=== PATIENT | female | born 1930 | race African-American/Black ===

== ENCOUNTER 2018-05-09 15:14 | Inpatient (IN) ==
[2018-05-09] MEDS ORDERED: ENOXAPARIN 100 MG/ML SYRINGE SUBCUT STA (15:34)
[2018-05-09] MEDS ORDERED: ASPIRIN 325 MG TABLET PO STA (15:34)
[2018-05-09] MEDS ORDERED: ALUM/MAG/SIMETH/LIDO VISC 1:1 30 ML BOTTLE PO STA (15:34)
[2018-05-09 16:00] LABS: Basophils % 0.3 % (0.0-0.8); Eosinophils # 0.1 10*3/uL (0.0-0.87); Eosinophils % 0.5 % (0.00-10.9); Hemoglobin 12.1 GM/DL (12.0-16.0); Immature Granulocytes % 0.3 %; Immature Granulocytes Absolute 0.04 #; Lymphocytes # 2.9 10*3/uL (1.4-4.0); Lymphocytes % 21.8 % (21.3-54.2); Mean Corpuscular HGB Conc 32.7 GM/DL (32-36); Mean Corpuscular Hemoglobin 28 PG (27-34); Mean Corpuscular Volume 85.3 FL (87-102); Mean Platelet Volume 12.3 FL (9.6-12.0); Monocytes # 0.4 10*3/uL (0.11-0.8); Monocytes % 3.2 % (1.7-12.7); Neutrophils # 9.8 10*3/uL (1.4-7.4); Neutrophils % 73.9 % (38.7-73.9); Platelet Count 217 T/CUMM (130-400); Red Blood Count 4.34 MC/CUMM (3.8-5.5); Red Cell Distribution Width 13.3 % (9.3-17.3); White Blood Count 13.2 T/CUMM (4-12)
[2018-05-09 17:13] LABS: Albumin 3.4 G/DL (3.4-5.0); Bilirubin,Total 0.4 MG/DL (0.2-1.0); Calcium 9.7 MG/DL (8.5-10.1); Potassium 3.7 MMOL/L (3.5-5.1); Total Protein 7.6 G/DL (6.4-8.3)
[2018-05-09] MEDS ORDERED: ONDANSETRON 4 MG/2 ML VIAL IV PRN (17:32)
[2018-05-09] MEDS ORDERED: PROMETHAZINE 25 MG/1 ML VIAL IM PRN (17:32)
[2018-05-09] MEDS ORDERED: HYDROmorphone 2 MG/1 ML VIAL IV PRN (17:32)
[2018-05-09] MEDS ORDERED: MAGNESIUM SULF RIDER 2 GM in PREMIX 1 EACH IV ONE (17:32)
[2018-05-09] MEDS ORDERED: BISACODYL 5 MG TABLET PO PRN (17:32)
[2018-05-09] MEDS ORDERED: DEXTROSE 50% 25 GM/50 ML VIAL IV PRN (17:45)
[2018-05-09] MEDS ORDERED: GLUCAGON 1 MG VIAL IM PRN (17:45)
[2018-05-09] MEDS ORDERED: SODIUM CHLORIDE 0.9% 1,000 ML IV SCH (18:00)
[2018-05-09 19:04] LABS: Apearance,Urine CLEAR (Clear); Bilirubin,Urine Negative (Negative); Blood, Urine Small mg/dL (Negative); Glucose,Urine (UA) 50 mg/dL (Negative); Ketones,Urine Negative (Negative); Nitrite,Urine Negative (Negative); Protein,Urine Negative; Squamous Epithelial Cell,Urine Occasional /HPF (0-10); Urine Color Straw (Yellow); Urine Specific Gravity 1.003 (1.001-1.035); Urine Urobilinogen < 2.0 EU/DL (0.2-1.0); WBC,Urine <1 /HPF (0-6)
[2018-05-09 20:36] LABS: Folate 14.8 NG/ML (5.4-24.0)
[2018-05-09 21:16] LABS: Risk Ratio 2.86; Thyroid Stimulating Hormone 0.945 uIU/ml (0.358-3.74)
[2018-05-09] MEDS: CIPROFLOXACIN INJ 400 MG in PREMIX 1 EACH IV SCH (21:36)
[2018-05-09] MEDS: INSULIN LISPRO 100 UNIT/ML SUBCUT SCH (21:49)
[2018-05-09] MEDS: SODIUM CHLORIDE 0.45% 1,000 ML IV SCH (21:49)
[2018-05-09] MEDS: metroNIDAZOLE INJ 500 MG in PREMIX 1 EACH IV SCH (21:49)
[2018-05-10] MEDS: metroNIDAZOLE INJ 500 MG in PREMIX 1 EACH IV SCH ×4 (02:36→22:24)
[2018-05-10 05:35] LABS: Basophils % 0.3 % (0.0-0.8); Eosinophils % 0.2 % (0.00-10.9); Hemoglobin 12.4 GM/DL (12.0-16.0); Immature Granulocytes % 0.3 %; Immature Granulocytes Absolute 0.03 #; Lymphocytes # 1.9 10*3/uL (1.4-4.0); Lymphocytes % 18.8 % (21.3-54.2); Mean Corpuscular HGB Conc 34.4 GM/DL (32-36); Mean Corpuscular Hemoglobin 28 PG (27-34); Mean Corpuscular Volume 82.6 FL (87-102); Mean Platelet Volume 12.2 FL (9.6-12.0); Monocytes # 0.4 10*3/uL (0.11-0.8); Monocytes % 3.7 % (1.7-12.7); Neutrophils # 7.9 10*3/uL (1.4-7.4); Neutrophils % 76.7 % (38.7-73.9); Platelet Count 221 T/CUMM (130-400); Red Blood Count 4.36 MC/CUMM (3.8-5.5); Red Cell Distribution Width 13.2 % (9.3-17.3); White Blood Count 10.2 T/CUMM (4-12)
[2018-05-10 05:50] LABS: Albumin 2.9 G/DL (3.4-5.0); Bilirubin,Total 0.9 MG/DL (0.2-1.0); Calcium 9.1 MG/DL (8.5-10.1); Osmolality,Calculated 279.7 MOS/KG (273-304); Potassium 3.6 MMOL/L (3.5-5.1); Total Protein 6.9 G/DL (6.4-8.3)
[2018-05-10] MEDS: INSULIN LISPRO 100 UNIT/ML SUBCUT SCH ×4 (08:05→22:25)
[2018-05-10] MEDS: PANTOPRAZOLE 40 MG TABLET PO SCH (08:06)
[2018-05-10] MEDS: ASPIRIN EC 325 MG TABLET PO SCH (08:06)
[2018-05-10] MEDS: ENOXAPARIN 30 MG/0.3 ML SYRINGE SUBCUT SCH ×2 (08:12→08:13)
[2018-05-10] MEDS ORDERED: LISINOPRIL 20 MG TABLET PO SCH (09:00)
[2018-05-10] MEDS ORDERED: INSULIN GLARGINE 100 UNIT/ML SUBCUT SCH (09:00)
[2018-05-10] MEDS: CIPROFLOXACIN INJ 400 MG in PREMIX 1 EACH IV SCH ×2 (09:56→23:49)
[2018-05-10] MEDS ORDERED: LACTULOSE 20 GM/30 ML UDCUP PO PRN (12:06)
[2018-05-10] MEDS ORDERED: DOCUSATE SODIUM 100 MG CAPSULE PO PRN (12:06)
[2018-05-10] MEDS: SODIUM CHLORIDE 0.45% 1,000 ML IV SCH (17:43)
[2018-05-10] MEDS: LINACLOTIDE 145 MCG CAPSULE PO SCH (22:23)
[2018-05-11] MEDS: SODIUM CHLORIDE 0.45% 1,000 ML IV SCH ×2 (00:16→06:14)
[2018-05-11] MEDS: metroNIDAZOLE INJ 500 MG in PREMIX 1 EACH IV SCH ×4 (02:56→23:02)
[2018-05-11 04:19] LABS: Basophils % 0.3 % (0.0-0.8); Eosinophils % 0.4 % (0.00-10.9); Hematocrit 37.1 VOL% (35.7-47.0); Hemoglobin 12.3 GM/DL (12.0-16.0); Immature Granulocytes % 0.3 %; Immature Granulocytes Absolute 0.03 #; Lymphocytes # 1.8 10*3/uL (1.4-4.0); Lymphocytes % 17.7 % (21.3-54.2); Mean Corpuscular HGB Conc 33.2 GM/DL (32-36); Mean Corpuscular Hemoglobin 28 PG (27-34); Mean Corpuscular Volume 85.3 FL (87-102); Mean Platelet Volume 12.4 FL (9.6-12.0); Monocytes # 0.4 10*3/uL (0.11-0.8); Monocytes % 4.2 % (1.7-12.7); Neutrophils # 7.8 10*3/uL (1.4-7.4); Neutrophils % 77.1 % (38.7-73.9); Platelet Count 209 T/CUMM (130-400); Red Blood Count 4.35 MC/CUMM (3.8-5.5); Red Cell Distribution Width 13.2 % (9.3-17.3); White Blood Count 10.1 T/CUMM (4-12)
[2018-05-11 04:58] LABS: Calcium 8.7 MG/DL (8.5-10.1); Potassium 3.5 MMOL/L (3.5-5.1)
[2018-05-11] MEDS: PANTOPRAZOLE 40 MG TABLET PO SCH (08:38)
[2018-05-11] MEDS: LINACLOTIDE 145 MCG CAPSULE PO SCH (08:38)
[2018-05-11] MEDS: ENOXAPARIN 30 MG/0.3 ML SYRINGE SUBCUT SCH (08:38)
[2018-05-11] MEDS: ASPIRIN EC 325 MG TABLET PO SCH (08:38)
[2018-05-11] MEDS: INSULIN LISPRO 100 UNIT/ML SUBCUT SCH ×4 (08:51→23:02)
[2018-05-11] MEDS ORDERED: ROSUVASTATIN 10 MG TABLET PO SCH (09:30)
[2018-05-11] MEDS: ROSUVASTATIN 20 MG TABLET PO SCH (09:42)
[2018-05-11] MEDS: amLODIPine 5 MG TABLET PO SCH (09:42)
[2018-05-11] MEDS: LISINOPRIL 5 MG TABLET PO SCH (09:43)
[2018-05-11] MEDS: CIPROFLOXACIN INJ 400 MG in PREMIX 1 EACH IV SCH (09:44)
[2018-05-12] MEDS: CIPROFLOXACIN INJ 400 MG in PREMIX 1 EACH IV SCH ×2 (00:14→10:52)
[2018-05-12] MEDS: metroNIDAZOLE INJ 500 MG in PREMIX 1 EACH IV SCH ×2 (03:45→10:52)
[2018-05-12] MEDS ORDERED: LIDOCAINE 100 MG/5 ML SYRINGE ONE (09:00)
[2018-05-12] MEDS ORDERED: PHENYLEPHRINE 1 MG/10 ML SYRINGE IV ONE (09:00)
[2018-05-12] MEDS ORDERED: BENZOCAINE 20% SPRAY 57 GM CAN TOP ONE (09:00)
[2018-05-12] MEDS ORDERED: ONDANSETRON 4 MG/2 ML VIAL ONE (09:00)
[2018-05-12] MEDS ORDERED: PROPOFOL 200 MG/20 ML VIAL IV ONE (09:00)
[2018-05-12] MEDS: INSULIN LISPRO 100 UNIT/ML SUBCUT SCH ×4 (10:27→21:28)
[2018-05-12] MEDS: ASPIRIN EC 325 MG TABLET PO SCH (10:28)
[2018-05-12] MEDS: LINACLOTIDE 145 MCG CAPSULE PO SCH (10:28)
[2018-05-12] MEDS: ROSUVASTATIN 20 MG TABLET PO SCH (10:28)
[2018-05-12] MEDS: amLODIPine 5 MG TABLET PO SCH (10:29)
[2018-05-12] MEDS: LISINOPRIL 5 MG TABLET PO SCH (10:29)
[2018-05-12] MEDS: FLUCONAZOLE 100 MG TABLET PO SCH (10:29)
[2018-05-12] MEDS: PANTOPRAZOLE 40 MG TABLET PO SCH (10:29)
[2018-05-12] MEDS: metFORMIN 850 MG TABLET PO SCH ×2 (12:59→16:47)
[2018-05-13 04:37] LABS: Basophils # 0.1 10*3/uL (0.0-0.2); Basophils % 0.5 % (0.0-0.8); Eosinophils # 0.1 10*3/uL (0.0-0.87); Eosinophils % 0.8 % (0.00-10.9); Hematocrit 31.9 VOL% (35.7-47.0); Hemoglobin 10.6 GM/DL (12.0-16.0); Immature Granulocytes % 0.3 %; Immature Granulocytes Absolute 0.03 #; Lymphocytes # 2.8 10*3/uL (1.4-4.0); Lymphocytes % 26.1 % (21.3-54.2); Mean Corpuscular HGB Conc 33.2 GM/DL (32-36); Mean Corpuscular Hemoglobin 28 PG (27-34); Mean Corpuscular Volume 83.1 FL (87-102); Mean Platelet Volume 12.4 FL (9.6-12.0); Monocytes # 0.6 10*3/uL (0.11-0.8); Monocytes % 6.1 % (1.7-12.7); Neutrophils % 66.2 % (38.7-73.9); Platelet Count 191 T/CUMM (130-400); Red Blood Count 3.84 MC/CUMM (3.8-5.5); Red Cell Distribution Width 13.2 % (9.3-17.3); White Blood Count 10.6 T/CUMM (4-12)
[2018-05-13 04:52] LABS: Calcium 8.1 MG/DL (8.5-10.1); Osmolality,Calculated 279.7 MOS/KG (273-304); Potassium 3.4 MMOL/L (3.5-5.1)
[2018-05-13] MEDS: ASPIRIN EC 325 MG TABLET PO SCH (09:06)
[2018-05-13] MEDS: LISINOPRIL 5 MG TABLET PO SCH (09:06)
[2018-05-13] MEDS: metFORMIN 850 MG TABLET PO SCH ×3 (09:06→18:15)
[2018-05-13] MEDS: ROSUVASTATIN 20 MG TABLET PO SCH (09:06)
[2018-05-13] MEDS: PANTOPRAZOLE 40 MG TABLET PO SCH (09:06)
[2018-05-13] MEDS: FLUCONAZOLE 100 MG TABLET PO SCH (09:06)
[2018-05-13] MEDS: LINACLOTIDE 145 MCG CAPSULE PO SCH (09:07)
[2018-05-13] MEDS: amLODIPine 5 MG TABLET PO SCH (09:07)
[2018-05-13] MEDS: INSULIN LISPRO 100 UNIT/ML SUBCUT SCH ×4 (09:16→21:46)
[2018-05-13 09:44] LABS: Hematocrit 33.6 VOL% (35.7-47.0); Hemoglobin 11.2 GM/DL (12.0-16.0)
[2018-05-13] MEDS: SODIUM CHLOR 0.9% KCL 40 MEQ 40 MEQ/1,000 ML BAG IV SCH (11:43)
[2018-05-14] MEDS: SODIUM CHLOR 0.9% KCL 40 MEQ 40 MEQ/1,000 ML BAG IV SCH ×2 (02:00→05:01)
[2018-05-14 04:16] LABS: Basophils % 0.4 % (0.0-0.8); Eosinophils # 0.2 10*3/uL (0.0-0.87); Eosinophils % 2.8 % (0.00-10.9); Hematocrit 31.1 VOL% (35.7-47.0); Hemoglobin 10.3 GM/DL (12.0-16.0); Immature Granulocytes % 0.2 %; Immature Granulocytes Absolute 0.02 #; Lymphocytes # 3.1 10*3/uL (1.4-4.0); Lymphocytes % 37.3 % (21.3-54.2); Mean Corpuscular HGB Conc 33.1 GM/DL (32-36); Mean Corpuscular Hemoglobin 28 PG (27-34); Mean Corpuscular Volume 83.4 FL (87-102); Mean Platelet Volume 12.5 FL (9.6-12.0); Monocytes # 0.4 10*3/uL (0.11-0.8); Monocytes % 5.3 % (1.7-12.7); Neutrophils # 4.5 10*3/uL (1.4-7.4); Platelet Count 190 T/CUMM (130-400); Red Blood Count 3.73 MC/CUMM (3.8-5.5); Red Cell Distribution Width 13.4 % (9.3-17.3); White Blood Count 8.3 T/CUMM (4-12)
[2018-05-14 04:40] LABS: Calcium 8.1 MG/DL (8.5-10.1); Osmolality,Calculated 279.3 MOS/KG (273-304); Potassium 3.8 MMOL/L (3.5-5.1)
[2018-05-14] MEDS ORDERED: MAGNESIUM CHLORIDE 64 MG TABLET PO ONE (07:08)
[2018-05-14] MEDS ORDERED: POTASSIUM CHLORIDE 20 MEQ TABLET PO SCH (09:00)
[2018-05-14] MEDS: FLUCONAZOLE 100 MG TABLET PO SCH (11:09)
[2018-05-14] MEDS: LISINOPRIL 5 MG TABLET PO SCH (11:11)
[2018-05-14] MEDS: amLODIPine 5 MG TABLET PO SCH (11:11)
[2018-05-14] MEDS: ROSUVASTATIN 20 MG TABLET PO SCH (11:11)
[2018-05-14] MEDS: PANTOPRAZOLE 40 MG TABLET PO SCH (11:11)
[2018-05-14] MEDS: metFORMIN 850 MG TABLET PO SCH ×2 (11:12→15:43)
[2018-05-14] MEDS: ASPIRIN EC 325 MG TABLET PO SCH (11:12)
[2018-05-14] MEDS: LINACLOTIDE 145 MCG CAPSULE PO SCH (11:12)
[2018-05-14] MEDS: INSULIN LISPRO 100 UNIT/ML SUBCUT SCH (15:41)
[2018-05-14 16:05] VITALS: BP 121/59
== END 2018-05-14 16:50 | disposition home health service (06) | DRG 392 ==
LOC: EDBD → EDUNIT# → N.ED 15:14 → N.EDINP 17:32 → SUATTDRO 17:32 → N.TELEN 19:01
PROVIDERS: ADMIT Internal Medicine; ATTEND Hospitalist

== ENCOUNTER 2018-08-03 18:13 | Inpatient (IN) ==
[2018-08-03 19:10] LABS: Basophils % 0.7 % (0.0-0.8); Eosinophils # 0.1 10*3/uL (0.0-0.87); Eosinophils % 1.4 % (0.00-10.9); Hematocrit 39.2 VOL% (35.7-47.0); Hemoglobin 12.6 GM/DL (12.0-16.0); Immature Granulocytes % 0.3 %; Immature Granulocytes Absolute 0.02 #; Lymphocytes % 34.3 % (21.3-54.2); Mean Corpuscular HGB Conc 32.1 GM/DL (32-36); Mean Corpuscular Hemoglobin 28 PG (27-34); Mean Corpuscular Volume 87.5 FL (87-102); Mean Platelet Volume 13.7 FL (9.6-12.0); Monocytes # 0.3 10*3/uL (0.11-0.8); Monocytes % 4.4 % (1.7-12.7); Neutrophils # 3.4 10*3/uL (1.4-7.4); Neutrophils % 58.9 % (38.7-73.9); Platelet Count 157 T/CUMM (130-400); Red Blood Count 4.48 MC/CUMM (3.8-5.5); Red Cell Distribution Width 12.7 % (9.3-17.3); White Blood Count 5.7 T/CUMM (4-12)
[2018-08-03 19:23] LABS: Apearance,Urine CLEAR (Clear); Bacteria,Urine Occasional /HPF (Few); Bilirubin,Urine Negative (Negative); Blood, Urine Negative (Negative); Glucose,Urine (UA) >=500 mg/dL (Negative); Ketones,Urine Negative (Negative); Nitrite,Urine Negative (Negative); Protein,Urine Negative; RBC,Urine <1 /HPF (0-4); Squamous Epithelial Cell,Urine Occasional /HPF (0-10); Urine Color Straw (Yellow); Urine Specific Gravity 1.021 (1.001-1.035); Urine Urobilinogen < 2.0 EU/DL (0.2-1.0); WBC,Urine 1 /HPF (0-6)
[2018-08-03 19:28] LABS: Calcium 9.8 MG/DL (8.5-10.1); Osmolality,Calculated 307.1 MOS/KG (273-304); Potassium 4.5 MMOL/L (3.5-5.1)
[2018-08-03] MEDS ORDERED: ONDANSETRON 4 MG/2 ML VIAL IV STA (19:34)
[2018-08-03] MEDS ORDERED: SODIUM CHLORIDE 0.9% 1,000 ML IV STA (19:34)
[2018-08-03] MEDS ORDERED: INSULIN REGULAR 100 UNIT/ML IV STA (19:34)
[2018-08-03] MEDS ORDERED: PANTOPRAZOLE 40 MG VIAL IV STA (19:34)
[2018-08-03] MEDS ORDERED: ONDANSETRON 4 MG/2 ML VIAL IV PRN (20:22)
[2018-08-03] MEDS ORDERED: SODIUM CHLORIDE 0.9% 1,000 ML IV ONE (20:23)
[2018-08-03] MEDS ORDERED: DEXTROSE 50% 25 GM/50 ML VIAL IV PRN ×2 (20:23)
[2018-08-03] MEDS ORDERED: MAGNESIUM SULF RIDER 4 GM in PREMIX 1 EACH IV PRN (20:23)
[2018-08-03] MEDS ORDERED: SODIUM PHOSPHATE INJ 15.8 MMOL in SODIUM CHLORIDE 0.9% 250 ML IV PRN (20:23)
[2018-08-03] MEDS ORDERED: POTASSIUM CHLORIDE RIDER 10 MEQ in PREMIX 1 EACH IV PRN (20:23)
[2018-08-03] MEDS ORDERED: MAGNESIUM SULF RIDER 2 GM in PREMIX 1 EACH IV PRN (20:23)
[2018-08-03] MEDS ORDERED: INSULIN REGULAR 100 UNIT/ML IV ONE (20:23)
[2018-08-03 21:53] LABS: Calcium 9.4 MG/DL (8.5-10.1); Osmolality,Calculated 305.2 MOS/KG (273-304); Potassium 4.6 MMOL/L (3.5-5.1)
[2018-08-03] MEDS ORDERED: INSULIN REGULAR DRIP 100 ML IV SCH (22:00)
[2018-08-03] MEDS: SODIUM CHLORIDE 0.9% 1,000 ML IV SCH (22:55)
[2018-08-04] MEDS: SODIUM CHLORIDE 0.9% 1,000 ML IV SCH (01:00)
[2018-08-04 01:17] LABS: Calcium 9.3 MG/DL (8.5-10.1); Osmolality,Calculated 295.8 MOS/KG (273-304); Potassium 3.8 MMOL/L (3.5-5.1)
[2018-08-04] MEDS ORDERED: SODIUM CHLORIDE 0.9% 1,000 ML IV SCH (01:23)
[2018-08-04] MEDS: DEXTROSE 5% NACL 0.9% 1,000 ML IV SCH ×2 (02:29→14:17)
[2018-08-04 04:37] LABS: Basophils # 0.1 10*3/uL (0.0-0.2); Basophils % 0.6 % (0.0-0.8); Eosinophils # 0.1 10*3/uL (0.0-0.87); Eosinophils % 1.2 % (0.00-10.9); Hematocrit 34.4 VOL% (35.7-47.0); Immature Granulocytes % 0.2 %; Immature Granulocytes Absolute 0.02 #; Lymphocytes # 2.9 10*3/uL (1.4-4.0); Lymphocytes % 33.6 % (21.3-54.2); Mean Corpuscular Hemoglobin 28 PG (27-34); Mean Corpuscular Volume 88.4 FL (87-102); Mean Platelet Volume 12.6 FL (9.6-12.0); Monocytes # 0.6 10*3/uL (0.11-0.8); Monocytes % 7.5 % (1.7-12.7); Neutrophils # 4.9 10*3/uL (1.4-7.4); Neutrophils % 56.9 % (38.7-73.9); Platelet Count 152 T/CUMM (130-400); Red Blood Count 3.89 MC/CUMM (3.8-5.5); Red Cell Distribution Width 12.5 % (9.3-17.3); White Blood Count 8.6 T/CUMM (4-12)
[2018-08-04 04:54] LABS: Allen Test Positive
[2018-08-04 04:55] LABS: ABG Base Excess 1.3 MMOL/L (-2.5-2.5); ABG HCO3 26.6 MMOL/L (20-26); ABG Oxygen Saturation 97.5 % (95-100); ABG PCO2 44.7 MM HG (35-48); ABG PH 7.392 (7.35-7.45); ABG PO2 103.2 MM HG (80-95); ABG TCO2 27.9 MMOL/L (23-27)
[2018-08-04 05:09] LABS: Calcium 8.5 MG/DL (8.5-10.1); Osmolality,Calculated 286.8 MOS/KG (273-304); Potassium 3.6 MMOL/L (3.5-5.1)
[2018-08-04] MEDS ORDERED: GLUCAGON 1 MG VIAL IM PRN (05:18)
[2018-08-04] MEDS ORDERED: DEXTROSE 50% 25 GM/50 ML VIAL IV PRN (05:18)
[2018-08-04] MEDS: SODIUM CHLORIDE 0.45% 1,000 ML IV SCH ×2 (08:00→16:47)
[2018-08-04] MEDS ORDERED: INSULIN GLARGINE 100 UNIT/ML SUBCUT SCH (09:00)
[2018-08-04] MEDS ORDERED: MAGNESIUM OXIDE 400 MG TABLET ONE (09:58)
[2018-08-04] MEDS ORDERED: DIPH/TET/ACEL PERT BOOSTER VACCINE 0.5 ML VIAL IM ONE (10:04)
[2018-08-04] MEDS: POTASSIUM CHLORIDE 20 MEQ TABLET PO SCH (10:08)
[2018-08-04] MEDS: ROSUVASTATIN 20 MG TABLET PO SCH (10:09)
[2018-08-04] MEDS: NYSTATIN 500,000 UNIT/5 ML UDCUP SWISH/SWAL SCH ×4 (10:09→21:41)
[2018-08-04] MEDS: MAGNESIUM OXIDE 400 MG TABLET PO SCH (10:09)
[2018-08-04] MEDS: LINACLOTIDE 145 MCG CAPSULE PO SCH (10:09)
[2018-08-04] MEDS: CLOPIDOGREL 75 MG TABLET PO SCH (10:10)
[2018-08-04] MEDS: PANTOPRAZOLE 40 MG VIAL IV SCH (10:10)
[2018-08-04] MEDS: amLODIPine 5 MG TABLET PO SCH (10:10)
[2018-08-04] MEDS: LISINOPRIL 5 MG TABLET PO SCH (10:11)
[2018-08-04 10:23] LABS: Calcium 8.7 MG/DL (8.5-10.1); Osmolality,Calculated 295.3 MOS/KG (273-304); Potassium 4.8 MMOL/L (3.5-5.1)
[2018-08-04] MEDS: metFORMIN 850 MG TABLET PO SCH ×2 (11:56→16:47)
[2018-08-04] MEDS: INSULIN REGULAR 100 UNIT/ML SUBCUT SCH ×3 (11:56→21:41)
[2018-08-04] MEDS: ZINC OXIDE PASTE 113 GM TUBE TOP SCH ×2 (16:48→21:41)
[2018-08-05] MEDS ORDERED: MORPHINE 4 MG/1 ML VIAL IV PRN (00:49)
[2018-08-05] MEDS: SODIUM CHLORIDE 0.45% 1,000 ML IV SCH ×3 (01:11→20:53)
[2018-08-05 06:00] LABS: Calcium 8.4 MG/DL (8.5-10.1); Osmolality,Calculated 279.5 MOS/KG (273-304); Potassium 4.3 MMOL/L (3.5-5.1)
[2018-08-05] MEDS: metFORMIN 850 MG TABLET PO SCH ×2 (08:45→16:57)
[2018-08-05] MEDS: INSULIN GLARGINE 100 UNIT/ML SUBCUT SCH (10:00)
[2018-08-05] MEDS ORDERED: FLUCONAZOLE 100 MG TABLET PO ONE (10:03)
[2018-08-05] MEDS: PANTOPRAZOLE 40 MG VIAL IV SCH (10:09)
[2018-08-05] MEDS: NYSTATIN 500,000 UNIT/5 ML UDCUP SWISH/SWAL SCH ×4 (10:10→20:54)
[2018-08-05] MEDS: MAGNESIUM OXIDE 400 MG TABLET PO SCH (10:10)
[2018-08-05] MEDS: amLODIPine 5 MG TABLET PO SCH (10:10)
[2018-08-05] MEDS: ROSUVASTATIN 20 MG TABLET PO SCH (10:10)
[2018-08-05] MEDS: CLOPIDOGREL 75 MG TABLET PO SCH (10:11)
[2018-08-05] MEDS: LISINOPRIL 5 MG TABLET PO SCH (10:11)
[2018-08-05] MEDS: ZINC OXIDE PASTE 113 GM TUBE TOP SCH ×2 (10:12→20:55)
[2018-08-05] MEDS: INSULIN REGULAR 100 UNIT/ML SUBCUT SCH ×4 (10:12→20:55)
[2018-08-05] MEDS: LINACLOTIDE 145 MCG CAPSULE PO SCH (10:12)
[2018-08-05] MEDS: POTASSIUM CHLORIDE 20 MEQ TABLET PO SCH (10:13)
[2018-08-06 05:54] LABS: Calcium 8.4 MG/DL (8.5-10.1); Osmolality,Calculated 276.4 MOS/KG (273-304); Potassium 4.2 MMOL/L (3.5-5.1)
[2018-08-06] MEDS: INSULIN REGULAR 100 UNIT/ML SUBCUT SCH ×4 (07:45→22:37)
[2018-08-06] MEDS: metFORMIN 850 MG TABLET PO SCH ×2 (09:30→17:41)
[2018-08-06] MEDS: CLOPIDOGREL 75 MG TABLET PO SCH (09:30)
[2018-08-06] MEDS: LISINOPRIL 5 MG TABLET PO SCH (09:30)
[2018-08-06] MEDS: PANTOPRAZOLE 40 MG VIAL IV SCH (09:31)
[2018-08-06] MEDS: POTASSIUM CHLORIDE 20 MEQ TABLET PO SCH (09:31)
[2018-08-06] MEDS: NYSTATIN 500,000 UNIT/5 ML UDCUP SWISH/SWAL SCH ×4 (09:31→20:59)
[2018-08-06] MEDS: MAGNESIUM OXIDE 400 MG TABLET PO SCH (09:31)
[2018-08-06] MEDS: amLODIPine 5 MG TABLET PO SCH (09:31)
[2018-08-06] MEDS: ROSUVASTATIN 20 MG TABLET PO SCH (09:31)
[2018-08-06] MEDS: LINACLOTIDE 145 MCG CAPSULE PO SCH (09:34)
[2018-08-06] MEDS: ZINC OXIDE PASTE 113 GM TUBE TOP SCH ×2 (09:34→22:37)
[2018-08-06] MEDS: POTASSIUM PHOS/SOD PHOS POWDER 250 MG PACK PO SCH ×2 (09:39→20:59)
[2018-08-06] MEDS: INSULIN GLARGINE 100 UNIT/ML SUBCUT SCH (09:49)
[2018-08-06 11:26] LABS: Apearance,Urine CLEAR (Clear); Bacteria,Urine Moderate /HPF (Few); Bilirubin,Urine Negative (Negative); Blood, Urine Large mg/dL (Negative); Glucose,Urine (UA) 150 mg/dL (Negative); Ketones,Urine Negative (Negative); Mucus,Urine Occasional /LPF (Occasional); Nitrite,Urine Negative (Negative); Protein,Urine Negative; RBC,Urine 39 /HPF (0-4); Squamous Epithelial Cell,Urine Occasional /HPF (0-10); Urine Color Straw (Yellow); Urine Specific Gravity 1.004 (1.001-1.035); Urine Urobilinogen < 2.0 EU/DL (0.2-1.0); WBC,Urine 16 /HPF (0-6)
[2018-08-06] MEDS: PHENAZOPYRIDINE 95 MG TABLET PO SCH (17:41)
[2018-08-06] MEDS ORDERED: SODIUM CHLORIDE 0.9% 500 ML IV ONE (20:17)
[2018-08-06] MEDS: DOXYCYCLINE MONOHYDRATE SUSP 5 MG/ML 60 ML/BOTTLE PO SCH (21:00)
[2018-08-07] MEDS: metFORMIN 850 MG TABLET PO SCH ×2 (08:22→17:08)
[2018-08-07] MEDS: DOXYCYCLINE MONOHYDRATE SUSP 5 MG/ML 60 ML/BOTTLE PO SCH (08:22)
[2018-08-07] MEDS: LISINOPRIL 5 MG TABLET PO SCH (08:22)
[2018-08-07] MEDS: ROSUVASTATIN 20 MG TABLET PO SCH (08:23)
[2018-08-07] MEDS: NYSTATIN 500,000 UNIT/5 ML UDCUP SWISH/SWAL SCH ×4 (08:23→20:15)
[2018-08-07] MEDS: MAGNESIUM OXIDE 400 MG TABLET PO SCH (08:23)
[2018-08-07] MEDS: CLOPIDOGREL 75 MG TABLET PO SCH (08:23)
[2018-08-07] MEDS: INSULIN GLARGINE 100 UNIT/ML SUBCUT SCH (08:23)
[2018-08-07] MEDS: POTASSIUM PHOS/SOD PHOS POWDER 250 MG PACK PO SCH ×2 (08:23→20:36)
[2018-08-07] MEDS: POTASSIUM CHLORIDE 20 MEQ TABLET PO SCH (08:23)
[2018-08-07] MEDS: PHENAZOPYRIDINE 95 MG TABLET PO SCH ×3 (08:23→17:08)
[2018-08-07] MEDS: ZINC OXIDE PASTE 113 GM TUBE TOP SCH ×2 (08:24→20:37)
[2018-08-07] MEDS: INSULIN REGULAR 100 UNIT/ML SUBCUT SCH ×4 (08:24→20:15)
[2018-08-07] MEDS: amLODIPine 5 MG TABLET PO SCH (08:25)
[2018-08-07] MEDS: PANTOPRAZOLE 40 MG VIAL IV SCH (08:28)
[2018-08-07] MEDS: cefTRIAXone 1,000 MG in SYRINGE 1 EACH IV SCH (10:42)
[2018-08-07] MEDS: LINACLOTIDE 145 MCG CAPSULE PO SCH (11:39)
[2018-08-07] MEDS: CLOTRIMAZOLE/BETAMETHASONE CREAM 15 GM TUBE TOP SCH ×2 (12:43→20:37)
[2018-08-08] MEDS: INSULIN REGULAR 100 UNIT/ML SUBCUT SCH ×4 (08:42→21:30)
[2018-08-08] MEDS: MAGNESIUM OXIDE 400 MG TABLET PO SCH (08:45)
[2018-08-08] MEDS: POTASSIUM CHLORIDE 20 MEQ TABLET PO SCH (08:45)
[2018-08-08] MEDS: ROSUVASTATIN 20 MG TABLET PO SCH (08:45)
[2018-08-08] MEDS: LISINOPRIL 5 MG TABLET PO SCH (08:45)
[2018-08-08] MEDS: metFORMIN 850 MG TABLET PO SCH ×2 (08:45→16:40)
[2018-08-08] MEDS: amLODIPine 5 MG TABLET PO SCH (08:45)
[2018-08-08] MEDS: LINACLOTIDE 145 MCG CAPSULE PO SCH (08:45)
[2018-08-08] MEDS: PHENAZOPYRIDINE 95 MG TABLET PO SCH ×3 (08:45→16:40)
[2018-08-08] MEDS: NYSTATIN 500,000 UNIT/5 ML UDCUP SWISH/SWAL SCH ×4 (08:45→21:26)
[2018-08-08] MEDS: CLOTRIMAZOLE/BETAMETHASONE CREAM 15 GM TUBE TOP SCH ×2 (08:46→21:26)
[2018-08-08] MEDS: ZINC OXIDE PASTE 113 GM TUBE TOP SCH ×2 (08:46→21:26)
[2018-08-08] MEDS: INSULIN GLARGINE 100 UNIT/ML SUBCUT SCH (08:46)
[2018-08-08] MEDS: POTASSIUM PHOS/SOD PHOS POWDER 250 MG PACK PO SCH ×2 (08:46→21:26)
[2018-08-08] MEDS: PANTOPRAZOLE 40 MG VIAL IV SCH (08:47)
[2018-08-08] MEDS: cefTRIAXone 1,000 MG in SYRINGE 1 EACH IV SCH (08:50)
[2018-08-08] MEDS: CLOPIDOGREL 75 MG TABLET PO SCH (08:51)
[2018-08-08 10:12] LABS: Basophils # 0.1 10*3/uL (0.0-0.2); Basophils % 0.6 % (0.0-0.8); Eosinophils # 0.1 10*3/uL (0.0-0.87); Eosinophils % 1.4 % (0.00-10.9); Hematocrit 36.8 VOL% (35.7-47.0); Hemoglobin 11.8 GM/DL (12.0-16.0); Immature Granulocytes % 0.4 %; Immature Granulocytes Absolute 0.03 #; Lymphocytes # 3.4 10*3/uL (1.4-4.0); Lymphocytes % 40.8 % (21.3-54.2); Mean Corpuscular HGB Conc 32.1 GM/DL (32-36); Mean Corpuscular Hemoglobin 28 PG (27-34); Mean Corpuscular Volume 87.8 FL (87-102); Mean Platelet Volume 13.2 FL (9.6-12.0); Monocytes # 0.4 10*3/uL (0.11-0.8); Monocytes % 4.6 % (1.7-12.7); Neutrophils # 4.4 10*3/uL (1.4-7.4); Neutrophils % 52.2 % (38.7-73.9); Platelet Count 180 T/CUMM (130-400); Red Blood Count 4.19 MC/CUMM (3.8-5.5); Red Cell Distribution Width 12.8 % (9.3-17.3); White Blood Count 8.4 T/CUMM (4-12)
[2018-08-08 11:15] LABS: Alanine Aminotransferase 13 U/L (13-56); Albumin 2.8 G/DL (3.4-5.0); Alkaline Phosphatase 122 U/L (45-117); Aspartate Amino Transferase 14 U/L (0-37); Bilirubin,Total < 0.39 MG/DL (0.2-1.0); Blood Urea Nitrogen 8 MG/DL (7-18); Calcium 9.7 MG/DL (8.5-10.1); Glucose 146 MG/DL (74-106); Osmolality,Calculated 279.4 MOS/KG (273-304); Potassium 4.5 MMOL/L (3.5-5.1); Sodium 140 MMOL/L (136-145); Total Protein 7.3 G/DL (6.4-8.3)
[2018-08-09 05:43] LABS: Basophils % 0.4 % (0.0-0.8); Eosinophils # 0.1 10*3/uL (0.0-0.87); Eosinophils % 1.9 % (0.00-10.9); Hematocrit 32.8 VOL% (35.7-47.0); Hemoglobin 10.2 GM/DL (12.0-16.0); Immature Granulocytes % 0.3 %; Immature Granulocytes Absolute 0.02 #; Lymphocytes # 2.7 10*3/uL (1.4-4.0); Lymphocytes % 38.3 % (21.3-54.2); Mean Corpuscular HGB Conc 31.1 GM/DL (32-36); Mean Corpuscular Hemoglobin 27 PG (27-34); Mean Corpuscular Volume 88.2 FL (87-102); Mean Platelet Volume 13.2 FL (9.6-12.0); Monocytes # 0.4 10*3/uL (0.11-0.8); Monocytes % 5.9 % (1.7-12.7); Neutrophils # 3.7 10*3/uL (1.4-7.4); Neutrophils % 53.2 % (38.7-73.9); Platelet Count 192 T/CUMM (130-400); Red Blood Count 3.72 MC/CUMM (3.8-5.5); Red Cell Distribution Width 12.9 % (9.3-17.3)
[2018-08-09 06:15] LABS: Alanine Aminotransferase 15 U/L (13-56); Albumin 2.5 G/DL (3.4-5.0); Alkaline Phosphatase 97 U/L (45-117); Aspartate Amino Transferase 13 U/L (0-37); Bilirubin,Total < 0.39 MG/DL (0.2-1.0); Blood Urea Nitrogen 9 MG/DL (7-18); Calcium 9.3 MG/DL (8.5-10.1); Glucose 87 MG/DL (74-106); Osmolality,Calculated 278.3 MOS/KG (273-304); Potassium 4.2 MMOL/L (3.5-5.1); Sodium 141 MMOL/L (136-145); Total Protein 6.4 G/DL (6.4-8.3)
[2018-08-09] MEDS: SODIUM CHLORIDE 0.45% 1,000 ML IV SCH (07:47)
[2018-08-09] MEDS: PANTOPRAZOLE 40 MG VIAL IV SCH (08:35)
[2018-08-09] MEDS: cefTRIAXone 1,000 MG in SYRINGE 1 EACH IV SCH (08:35)
[2018-08-09] MEDS: POTASSIUM CHLORIDE 20 MEQ TABLET PO SCH (08:36)
[2018-08-09] MEDS: POTASSIUM PHOS/SOD PHOS POWDER 250 MG PACK PO SCH ×2 (08:36→20:54)
[2018-08-09] MEDS: MAGNESIUM OXIDE 400 MG TABLET PO SCH (08:36)
[2018-08-09] MEDS: NYSTATIN 500,000 UNIT/5 ML UDCUP SWISH/SWAL SCH ×4 (08:36→20:56)
[2018-08-09] MEDS: ROSUVASTATIN 20 MG TABLET PO SCH (08:36)
[2018-08-09] MEDS: PHENAZOPYRIDINE 95 MG TABLET PO SCH ×3 (08:36→17:25)
[2018-08-09] MEDS: CLOPIDOGREL 75 MG TABLET PO SCH (08:36)
[2018-08-09] MEDS: metFORMIN 850 MG TABLET PO SCH ×2 (08:36→17:25)
[2018-08-09] MEDS: amLODIPine 5 MG TABLET PO SCH (08:36)
[2018-08-09] MEDS: INSULIN GLARGINE 100 UNIT/ML SUBCUT SCH (08:37)
[2018-08-09] MEDS: INSULIN REGULAR 100 UNIT/ML SUBCUT SCH ×4 (08:37→20:56)
[2018-08-09] MEDS: ZINC OXIDE PASTE 113 GM TUBE TOP SCH ×2 (08:38→20:56)
[2018-08-09] MEDS: CLOTRIMAZOLE/BETAMETHASONE CREAM 15 GM TUBE TOP SCH ×2 (08:38→20:55)
[2018-08-09] MEDS: LISINOPRIL 5 MG TABLET PO SCH (08:42)
[2018-08-10 05:31] LABS: Alanine Aminotransferase 15 U/L (13-56); Albumin 2.5 G/DL (3.4-5.0); Alkaline Phosphatase 94 U/L (45-117); Aspartate Amino Transferase 18 U/L (0-37); Bilirubin,Total < 0.39 MG/DL (0.2-1.0); Blood Urea Nitrogen 9 MG/DL (7-18); Calcium 8.9 MG/DL (8.5-10.1); Glucose 63 MG/DL (74-106); Osmolality,Calculated 277.3 MOS/KG (273-304); Potassium 4.4 MMOL/L (3.5-5.1); Sodium 141 MMOL/L (136-145); Total Protein 6.2 G/DL (6.4-8.3)
[2018-08-10 06:03] LABS: Basophils # 0.1 10*3/uL (0.0-0.2); Basophils % 0.7 % (0.0-0.8); Eosinophils # 0.1 10*3/uL (0.0-0.87); Eosinophils % 1.7 % (0.00-10.9); Hematocrit 31.3 VOL% (35.7-47.0); Hemoglobin 9.9 GM/DL (12.0-16.0); Immature Granulocytes % 0.1 %; Immature Granulocytes Absolute 0.01 #; Lymphocytes # 3.2 10*3/uL (1.4-4.0); Lymphocytes % 43.4 % (21.3-54.2); Mean Corpuscular HGB Conc 31.6 GM/DL (32-36); Mean Corpuscular Hemoglobin 28 PG (27-34); Mean Corpuscular Volume 87.7 FL (87-102); Mean Platelet Volume 12.4 FL (9.6-12.0); Monocytes # 0.4 10*3/uL (0.11-0.8); Monocytes % 5.2 % (1.7-12.7); Neutrophils # 3.6 10*3/uL (1.4-7.4); Neutrophils % 48.9 % (38.7-73.9); Platelet Count 204 T/CUMM (130-400); Red Blood Count 3.57 MC/CUMM (3.8-5.5); Red Cell Distribution Width 12.7 % (9.3-17.3); White Blood Count 7.4 T/CUMM (4-12)
[2018-08-10] MEDS: INSULIN GLARGINE 100 UNIT/ML SUBCUT SCH (08:07)
[2018-08-10] MEDS: PANTOPRAZOLE 40 MG VIAL IV SCH (08:09)
[2018-08-10] MEDS: metFORMIN 850 MG TABLET PO SCH (08:10)
[2018-08-10] MEDS: PHENAZOPYRIDINE 95 MG TABLET PO SCH ×3 (08:10→17:49)
[2018-08-10] MEDS: MAGNESIUM OXIDE 400 MG TABLET PO SCH (08:10)
[2018-08-10] MEDS: ROSUVASTATIN 20 MG TABLET PO SCH (08:10)
[2018-08-10] MEDS: cefTRIAXone 1,000 MG in SYRINGE 1 EACH IV SCH (08:10)
[2018-08-10] MEDS: POTASSIUM PHOS/SOD PHOS POWDER 250 MG PACK PO SCH ×2 (08:11→21:16)
[2018-08-10] MEDS: INSULIN REGULAR 100 UNIT/ML SUBCUT SCH ×4 (08:11→21:15)
[2018-08-10] MEDS: amLODIPine 5 MG TABLET PO SCH (08:11)
[2018-08-10] MEDS: CLOPIDOGREL 75 MG TABLET PO SCH (08:11)
[2018-08-10] MEDS: POTASSIUM CHLORIDE 20 MEQ TABLET PO SCH (08:11)
[2018-08-10] MEDS: ZINC OXIDE PASTE 113 GM TUBE TOP SCH (08:12)
[2018-08-10] MEDS: CLOTRIMAZOLE/BETAMETHASONE CREAM 15 GM TUBE TOP SCH (08:12)
[2018-08-10] MEDS: NYSTATIN 500,000 UNIT/5 ML UDCUP SWISH/SWAL SCH ×4 (08:13→21:16)
[2018-08-10] MEDS: LISINOPRIL 5 MG TABLET PO SCH (08:17)
[2018-08-10] MEDS ORDERED: DIPHENOXYLATE/ATROPINE 2.5-0.025 MG TABLET PO PRN (11:38)
[2018-08-11] MEDS: ZINC OXIDE PASTE 113 GM TUBE TOP SCH ×2 (00:07→11:18)
[2018-08-11] MEDS: CLOTRIMAZOLE/BETAMETHASONE CREAM 15 GM TUBE TOP SCH ×2 (00:07→11:18)
[2018-08-11 05:53] LABS: Basophils # 0.1 10*3/uL (0.0-0.2); Basophils % 0.8 % (0.0-0.8); Eosinophils # 0.1 10*3/uL (0.0-0.87); Eosinophils % 1.4 % (0.00-10.9); Hematocrit 32.8 VOL% (35.7-47.0); Hemoglobin 10.4 GM/DL (12.0-16.0); Immature Granulocytes % 0.3 %; Immature Granulocytes Absolute 0.02 #; Lymphocytes % 44.7 % (21.3-54.2); Mean Corpuscular HGB Conc 31.7 GM/DL (32-36); Mean Corpuscular Hemoglobin 28 PG (27-34); Monocytes # 0.4 10*3/uL (0.11-0.8); Monocytes % 5.4 % (1.7-12.7); Neutrophils # 3.1 10*3/uL (1.4-7.4); Neutrophils % 47.4 % (38.7-73.9); Platelet Count 235 T/CUMM (130-400); Red Blood Count 3.77 MC/CUMM (3.8-5.5); Red Cell Distribution Width 12.6 % (9.3-17.3); White Blood Count 6.6 T/CUMM (4-12)
[2018-08-11 06:22] LABS: Calcium 8.8 MG/DL (8.5-10.1); Osmolality,Calculated 279.1 MOS/KG (273-304); Potassium 4.2 MMOL/L (3.5-5.1)
[2018-08-11 06:24] LABS: Alanine Aminotransferase 20 U/L (13-56); Albumin 2.5 G/DL (3.4-5.0); Alkaline Phosphatase 89 U/L (45-117); Aspartate Amino Transferase 20 U/L (0-37); Bilirubin,Total < 0.39 MG/DL (0.2-1.0); Blood Urea Nitrogen 7 MG/DL (7-18); Calcium 8.8 MG/DL (8.5-10.1); Glucose 78 MG/DL (74-106); Osmolality,Calculated 277.3 MOS/KG (273-304); Potassium 4.2 MMOL/L (3.5-5.1); Sodium 141 MMOL/L (136-145); Total Protein 6.4 G/DL (6.4-8.3)
[2018-08-11] MEDS: INSULIN REGULAR 100 UNIT/ML SUBCUT SCH ×2 (09:35→12:45)
[2018-08-11] MEDS: PHENAZOPYRIDINE 95 MG TABLET PO SCH ×2 (09:35→12:45)
[2018-08-11] MEDS: ROSUVASTATIN 20 MG TABLET PO SCH (09:36)
[2018-08-11] MEDS: POTASSIUM PHOS/SOD PHOS POWDER 250 MG PACK PO SCH (09:36)
[2018-08-11] MEDS: MAGNESIUM OXIDE 400 MG TABLET PO SCH (09:36)
[2018-08-11] MEDS: NYSTATIN 500,000 UNIT/5 ML UDCUP SWISH/SWAL SCH ×2 (09:36→13:28)
[2018-08-11] MEDS: POTASSIUM CHLORIDE 20 MEQ TABLET PO SCH (09:36)
[2018-08-11] MEDS: CLOPIDOGREL 75 MG TABLET PO SCH (09:36)
[2018-08-11] MEDS: PANTOPRAZOLE 40 MG VIAL IV SCH (09:43)
[2018-08-11] MEDS: cefTRIAXone 1,000 MG in SYRINGE 1 EACH IV SCH (09:49)
[2018-08-11] MEDS: INSULIN GLARGINE 100 UNIT/ML SUBCUT SCH (09:49)
[2018-08-11] MEDS: amLODIPine 5 MG TABLET PO SCH (11:18)
[2018-08-11] MEDS: LISINOPRIL 5 MG TABLET PO SCH (11:18)
[2018-08-11 13:53] VITALS: BP 116/65
== END 2018-08-11 15:22 | disposition home health service (06) | DRG 638 ==
LOC: SUATTDRO → N.ED 18:13 → N.EDINP 20:18 → SUATTDRO 20:18 → N.5E 08-04 09:39
PROVIDERS: ADMIT Internal Medicine; ATTEND Internal Medicine